=== PATIENT | male | born 1985 | race Caucasian/White ===

== ENCOUNTER 2018-03-18 22:03 | Emergency (ER) | payer OTHER, SELFPAY ==
--- NOTE | 2018-03-18 23:14 | EDPHYS ---
Physician Documentation [facility] Name: Blas Melchor Age: 32 yrs Sex: Male : 1985 Arrival Date: 03/18/2018 Time: 22:05 Bed 7 Private MD: ED Physician Avery Rodriguez HPI: 03/18 23:00 This 32 yrs old Male presents to ER via EMS with complaints of Right Ring pm1 Finger Injury. 23:00 The patient or guardian reports pain. The complaints affect the PIP of right ring pm1 finger. Context: The problem was sustained at work, resulted from subduing person under arrest. Onset: The symptoms/episode began/occurred just prior to arrival. Modifying factors: The symptoms are alleviated by holding still, the symptoms are aggravated by movement. Associated signs and symptoms: Pertinent negatives: cyanosis distally, decreased sensation distally, numbness distally, tingling distally. The patient has not experienced similar symptoms in the past. The patient has not recently seen a physician. Historical: - Allergies: 22:11 PENICILLINS; aa1 - PMHx: 22:11 Gastric Reflux; aa1 - PSHx: 22:11 Cholecystectomy; Knee surgery; aa1 - Immunization history:: Flu vaccine is not up to date. - Social history:: Smoking status: Patient/guardian denies using tobacco. - Ebola Screening: : No symptoms or risks identified at this time. ROS: 23:00 Constitutional: Negative for fever, chills, and weight loss, Neck: Negative for injury, pm1 pain, and swelling, Cardiovascular: Negative for chest pain, palpitations, and edema, Respiratory: Negative for shortness of breath, cough, wheezing, and pleuritic chest pain, Abdomen/GI: Negative for abdominal pain, nausea, vomiting, diarrhea, and constipation, Back: Negative for injury and pain. 23:00 Neuro: Negative for headache, weakness, numbness, tingling, and seizure. 23:00 MS/extremity: Positive for pain, swelling, of the right hand and PIP of right ring finger. 23:00 Skin: Positive for abrasion(s), of the heel of right hand. Exam: 23:00 Constitutional: This is a well developed, well nourished patient who is awake, alert, pm1 and in no acute distress. Head/Face: Normocephalic, atraumatic. Eyes: Pupils equal round and reactive to light, extra-ocular motions intact. Lids and lashes normal. Conjunctiva and sclera are non-icteric and not injected. Cornea within normal limits. Periorbital areas with no swelling, redness, or edema. ENT: Nares patent. No nasal discharge, no septal abnormalities noted. Tympanic membranes are normal and external auditory canals are clear. Oropharynx with no redness, swelling, or masses, exudates, or evidence of obstruction, uvula midline. Mucous membranes moist. Neck: Trachea midline, no thyromegaly or masses palpated, and no cervical lymphadenopathy. Supple, full range of motion without nuchal rigidity, or vertebral point tenderness. No Meningismus. Chest/axilla: Normal chest wall appearance and motion. Nontender with no deformity. No lesions are appreciated. Cardiovascular: Regular rate and rhythm with a normal S1 and S2. No gallops, murmurs, or rubs. No pulse deficits. Respiratory: Lungs have equal breath sounds bilaterally, clear to auscultation and percussion. No rales, rhonchi or wheezes noted. No increased work of breathing, no retractions or nasal flaring. Abdomen/GI: Soft, non-tender, with normal bowel sounds. No distension or tympany. No guarding or rebound. No evidence of tenderness throughout. Back: No spinal tenderness. No costovertebral tenderness. Full range of motion. 23:00 Musculoskeletal/extremity: Extremities: grossly normal except: noted in the PIP of right ring finger: swelling, tenderness, Patient is able to extend right ring finger fully and flex right ring finger PIP greater than 90 degrees. No dislocation present. 23:00 Skin: Appearance: normal except for affected area, injury, abrasion(s), very small abrasion noted, 1 cm(s), of the heel of right hand. 23:00 Neuro: Orientation: is normal, Motor: is normal, moves all fours. Vital Signs: 22:11 BP 146 / 83; Pulse 96; Resp 18; Temp 98.2; Pulse Ox 98% on R/A; Weight 136.08 kg; aa1 Height 6 ft. 4 in. (193.04 cm); Pain 3/10; 22:58 BP 137 / 96; Pulse 80; Resp 18; Pulse Ox 97% on R/A; ca1 23:36 BP 129 / 91; Pulse 74; Resp 18; Temp 98.7(O); Pulse Ox 98% on R/A; Pain 1/10; fc 22:11 Body Mass Index 36.52 (136.08 kg, 193.04 cm) aa1 MDM: 22:08 Patient medically screened. pm1 23:12 Data reviewed: vital signs. Data interpreted: Pulse oximetry: on room air is 97 %. pm1 Interpretation: normal. Counseling: I had a detailed discussion with the patient and/or guardian regarding: the historical points, exam findings, and any diagnostic results supporting the discharge/admit diagnosis, radiology results, the need for outpatient follow up, a hand specialist, to return to the emergency department if symptoms worsen or persist or if there are any questions or concerns that arise at home. 03/18 22:08 Order name: Hand Right 3 View XRAY pm1 03/18 22:59 Order name: Splint - Finger; Complete Time: 23:10 pm1 Administered Medications: No medications were administered Disposition: 03/19 05:31 Co-signature as Attending Physician, Avery Rodriguez MD I agree with the assessment and tw4 plan of care. Disposition: 03/18/18 23:13 Discharged to Home. Impression: Other sprain of right ring finger. - Condition is Stable. - Discharge Instructions: Cast or Splint Care, Adult, Finger Sprain, Adult. - Medication Reconciliation Form, Thank You Letter form. - Follow up: Emergency Department; When: As needed; Reason: Worsening of condition. Follow up: Alex Burgess MD; When: 2 - 3 days; Reason: Recheck today's complaints, Continuance of care, Re-evaluation by your physician. - Problem is new. - Symptoms have improved. Signatures: Dispatcher [employer] EDMS Alla No RN RN aa1 Martha Brewer RN RN Jonathan Sweet, RANCH HAND RANCH HAND pm1 Avery Rodriguez MD MD tw4 Corrections: (The following items were deleted from the chart) 03/18 23:38 23:13 03/18/2018 23:13 Discharged to Home. Impression: Other sprain of right ring fc finger. Condition is Stable. Forms are Medication Reconciliation Form, Thank You Letter, Antibiotic Education, Prescription Opioid Use. Follow up: Emergency Department; When: As needed; Reason: Worsening of condition. Follow up: Alex Burgess; When: 2 - 3 days; Reason: Recheck today's complaints, Continuance of care, Re-evaluation by your physician. Problem is new. Symptoms have improved. pm1
--- NOTE | 2018-03-18 23:14 | ER ---
Nurse's Notes [facility] Name: Blas Melchor Age: 32 yrs Sex: Male : 1985 Arrival Date: 03/18/2018 Time: 22:05 Bed 7 Private MD: Diagnosis: Other sprain of right ring finger Presentation: 03/18 22:05 Presenting complaint: Patient states: he was in pursuit of arresting an individual and aa1 somehow injured his R ring finger. States, "He was in the back of my car in cuffs before I even realized it was hurt.". Transition of care: patient was not received from another setting of care. Onset of symptoms was March 18, 2018. Risk Assessment: Do you want to hurt yourself or someone else? Patient reports no desire to harm self or others. Initial Sepsis Screen: Does the patient meet any 2 criteria? No. Patient's initial sepsis screen is negative. Does the patient have a suspected source of infection? No. Patient's initial sepsis screen is negative. Care prior to arrival: Splint applied. 22:05 Method Of Arrival: EMS: [facility] aa1 22:05 Acuity: ROBERTO 4 aa1 Triage Assessment: 22:11 General: Appears in no apparent distress. comfortable, Behavior is calm, cooperative, aa1 appropriate for age. Historical: - Allergies: 22:11 PENICILLINS; aa1 - PMHx: 22:11 Gastric Reflux; aa1 - PSHx: 22:11 Cholecystectomy; Knee surgery; aa1 - Immunization history:: Flu vaccine is not up to date. - Social history:: Smoking status: Patient/guardian denies using tobacco. - Ebola Screening: : No symptoms or risks identified at this time. Screenin:07 Abuse screen: Denies threats or abuse. Nutritional screening: No deficits noted. ca1 Tuberculosis screening: No symptoms or risk factors identified. Fall Risk None identified. Assessment: 22:07 General: Appears in no apparent distress. Behavior is calm, cooperative, appropriate ca1 for age. Pain: Complains of pain in dorsal aspect of proximal phalanx of right ring finger Aggravated by movement and pressure on the affected part. Neuro: Level of Consciousness is awake, alert, obeys commands, Oriented to person, place, time, situation. Cardiovascular: Heart tones S1 S2 present Capillary refill < 3 seconds Patient's skin is warm and dry. Respiratory: Airway is patent Trachea midline Respiratory effort is even, unlabored, Respiratory pattern is regular, symmetrical, Breath sounds are clear bilaterally. GI: Abdomen is round non-distended, Bowel sounds present X 4 quads. Abd is soft and non tender X 4 quads. : No signs and/or symptoms were reported regarding the genitourinary system. EENT: No signs and/or symptoms were reported regarding the EENT system. Derm: Skin is intact, is healthy with good turgor, Skin is pink, warm \\T\\ dry. Wound noted heel of right hand. Musculoskeletal: Circulation, motion, and sensation intact. Capillary refill < 3 seconds, Range of motion: limited in MCP of right ring finger. 22:57 Reassessment: Patient appears in no apparent distress at this time. Patient and/or ca1 family updated on plan of care and expected duration. Pain level reassessed. Patient is alert, oriented x 3, equal unlabored respirations, skin warm/dry/pink. Awaiting X-ray result.. Vital Signs: 22:11 BP 146 / 83; Pulse 96; Resp 18; Temp 98.2; Pulse Ox 98% on R/A; Weight 136.08 kg; aa1 Height 6 ft. 4 in. (193.04 cm); Pain 3/10; 22:58 BP 137 / 96; Pulse 80; Resp 18; Pulse Ox 97% on R/A; ca1 23:36 BP 129 / 91; Pulse 74; Resp 18; Temp 98.7(O); Pulse Ox 98% on R/A; Pain 1/10; fc 22:11 Body Mass Index 36.52 (136.08 kg, 193.04 cm) aa1 ED Course: 22:05 Patient arrived in ED. aa1 22:06 Sobia Pedraza, KELLY is Primary Nurse. ca1 22:07 Pulse ox on. NIBP on. ca1 22:08 Jonathan Sweet NP is PHCP. pm1 22:08 Avery Rodriguez MD is Attending Physician. pm1 22:08 Triage completed. aa1 22:11 Arm band placed on left wrist. aa1 22:12 Patient has correct armband on for positive identification. Bed in low position. Call ca1 light in reach. Side rails up X 1. 22:19 Hand Right 3 View XRAY In Process Unspecified. EDMS 23:11 Aluminum finger splint applied to dorsal aspect of middle phalanx of right ring finger, mt dorsal aspect of proximal phalanx of right ring finger and right ring fingernail. 23:12 Angel wrap to DIP of right ring finger, PIP of right ring finger and MCP of right ring mt finger. 23:13 Alex Burgess MD is Referral Physician. pm1 23:38 No provider procedures requiring assistance completed. Patient did not have IV access fc during this emergency room visit. Administered Medications: No medications were administered Outcome: 23:13 Discharge ordered by MD. pm1 23:37 Discharged to home ambulatory. fc 23:37 Condition: good 23:37 Discharge instructions given to patient, family, Instructed on discharge instructions, follow up and referral plans. Over the counter Motrin/Tylenol Demonstrated understanding of instructions, follow-up care, splint care, Over the counter medications Prescriptions given X none 23:38 Patient left the ED. fc Signatures: Dispatcher [employer] EDMS Alla No RN RN aa1 Martha Brewer RN RN Jonathan Sweet, [employer] WORK[employer] pm1 Carmel Green mt, Cheryl, RN RN ca1 Corrections: (The following items were deleted from the chart) 22:16 22:07 Patient has correct armband on for positive identification. Bed in low position. ca1 Call light in reach. Side rails up X 1. ca1 22:33 22:07 Injury Description: ca1 ca1 22:59 22:57 Reassessment: Patient appears in no apparent distress at this time. Patient ca1 and/or family updated on plan of care and expected duration. Pain level reassessed. Patient is alert, oriented x 3, equal unlabored respirations, skin warm/dry/pink. . ca1 23:00 22:57 Reassessment: Patient appears in no apparent distress at this time. Patient ca1 and/or family updated on plan of care and expected duration. Pain level reassessed. Patient is alert, oriented x 3, equal unlabored respirations, skin warm/dry/pink. Awaiting result.. ca1
--- NOTE | 2018-03-19 08:19 | RAD REPORT ---
EXAM DESCRIPTION: RAD - Hand Right 3 View - 03/18/2018 10:20 pm CLINICAL HISTORY: ring finger pain at PIP COMPARISON: No comparisons FINDINGS: No acute fracture or dislocation of the right hand is seen. Soft tissue swelling is seen a ffecting the fourth finger.
== END 2018-03-18 23:38 | disposition home or self-care (01) ==
LOC: ER 22:03
DX: S63.694A Other sprain of right ring finger, initial encounter (principal); Y35.891A Legal intervention involving other specified means, law enforcement official injured, initial encounter; Y99.0 Civilian activity done for income or pay
CPT/HCPCS: 99284

== ENCOUNTER 2019-07-14 19:03 | Emergency (ER) | payer OTHER, SELFPAY ==
[2019-07-14 20:13] LABS: Absolute Lymphocytes (CBC) 1.9 K/uL (0.7-4.9); Basophils % 0.9 % (0-1.3); Hematocrit 50.6 % (39.6-49.0); Lymphocytes % 27.7 % (15.3-44.8); MPV 12.2 fL (7.6-11.3); RBC Red Blood Cell Count 5.37 M/uL (4.33-5.43)
[2019-07-14 20:14] LABS: Blood Morphology Comment NOT SEEN (NOT SEEN); Platelet Estimate ADEQ; Urine White Blood Cell Casts OK
[2019-07-14 20:23] LABS: ALT/SGPT 29 U/L (12-78); AST/SGOT 13 U/L (15-37); Albumin 3.7 g/dL (3.4-5.0); Alkaline Phosphatase 48 U/L (45-117); BUN Blood Urea Nitrogen 16 mg/dL (7-18); Bicarbonate 29 mmol/L (21-32); Bilirubin Direct 0.2 mg/dL (0-0.2); Creatine Phosphokinase 66 U/L (39-308); Glucose Level 104 mg/dL (74-106); Lipase 77 U/L (73-393); Magnesium 2.3 mg/dL (1.8-2.4); Potassium 4.3 mmol/L (3.5-5.1); Protein, Total 7.1 g/dL (6.4-8.2); Sodium Level 141 mmol/L (136-145); Troponin (Emerg Dept Use Only) < 0.02 ng/mL (0.0-0.045)
--- NOTE | 2019-07-14 21:10 | RAD REPORT ---
EXAM DESCRIPTION: RAD - Chest Single View - 07/14/2019 8:27 pm CLINICAL HISTORY: SOB COMPARISON: None TECHNIQUE: AP portable chest image was obtained 07/14/2019 8:27 pm . FINDINGS: Lungs are clear. Heart and vasculature are normal. No measurable pleural effusion and no p neumothorax. No acute bony abnormality seen. No acute aortic findings suspected. IMPRESSION: No acute cardiopulmonary process.
[2019-07-14] MEDS ORDERED: NA CHLORIDE 0.9% 1,000 ML ONE (21:19)
--- NOTE | 2019-07-14 23:41 | EDPHYS ---
Physician Documentation [facility] Name: Blas Melchor Age: 33 yrs Sex: Male : 1985 Arrival Date: 07/14/2019 Time: 19:04 Bed 28 Private MD: ED Physician Avery Rodriguez HPI: 07/14 02:11 This 33 yrs old Male presents to ER via Ambulatory with complaints of tw4 Shortness Of Breath, Fatigue. 02:11 The patient has shortness of breath at rest. Onset: The symptoms/episode began/occurred tw4 today. Duration: The symptoms are continuous, and are unchanged since they started. The patient's shortness of breath has no apparent modifying factors. Severity of symptoms: At their worst the symptoms were mild in the emergency department the symptoms are unchanged. The patient has not experienced similar symptoms in the past. Historical: - Allergies: 07/13 19:41 PENICILLINS; ca1 - Home Meds: 19:41 Omeprazole Oral [Active]; ca1 - PMHx: 19:41 Gastric Reflux; ca1 - PSHx: 19:41 Cholecystectomy; Knee surgery; ca1 - Immunization history:: Adult Immunizations up to date, Flu vaccine is not up to date. - Social history:: Smoking status: Patient denies any tobacco usage or history of. ROS: 07/14 02:11 Cardiovascular: Negative for chest pain, palpitations, and edema, Abdomen/GI: Negative tw4 for abdominal pain, nausea, vomiting, diarrhea, and constipation, Back: Negative for injury and pain, MS/Extremity: Negative for injury and deformity, Skin: Negative for injury, rash, and discoloration. Constitutional: Negative for body aches, chills, fatigue, fever, malaise. Respiratory: Positive for shortness of breath, Negative for cough, dyspnea on exertion, hemoptysis, orthopnea, pleurisy. Exam: 02:11 Constitutional: This is a well developed, well nourished patient who is awake, alert, tw4 and in no acute distress. Head/Face: Normocephalic, atraumatic. Chest/axilla: Normal chest wall appearance and motion. Nontender with no deformity. No lesions are appreciated. Cardiovascular: Regular rate and rhythm with a normal S1 and S2. No gallops, murmurs, or rubs. Normal PMI, no JVD. No pulse deficits. Abdomen/GI: Soft, non-tender, with normal bowel sounds. No distension or tympany. No guarding or rebound. No evidence of tenderness throughout. Back: No spinal tenderness. No costovertebral tenderness. Full range of motion. MS/ Extremity: Pulses equal, no cyanosis. Neurovascular intact. Full, normal range of motion. Neuro: Awake and alert, GCS 15, oriented to person, place, time, and situation. Cranial nerves II-XII grossly intact. Motor strength 5/5 in all extremities. Sensory grossly intact. Cerebellar exam normal. Normal gait. Vital Signs: 07/13 19:37 BP 133 / 96; Pulse 66; Resp 17 S; Temp 97.5(TE); Pulse Ox 97% on R/A; Weight 156.49 kg ca1 (R); Height 6 ft. 4 in. (193.04 cm) (R); Pain 0/10; 20:40 BP 109 / 69; Pulse 56; Resp 14; Temp 97.5; Pulse Ox 99% on R/A; Pain 0/10; ls4 21:50 BP 114 / 79; Pulse 61; Resp 14; Pulse Ox 99% on R/A; Pain 0/10; ls4 23:00 BP 128 / 74; Pulse 62; Resp 14; Temp 98.0(O); Pulse Ox 99% on R/A; Pain 0/10; ls4 23:56 BP 116 / 66; Pulse 56; Resp 14; Pulse Ox 99% on R/A; ls4 19:37 Body Mass Index 41.99 (156.49 kg, 193.04 cm) ca1 MDM: 19:48 Patient medically screened. tw07/14 02:18 Differential diagnosis: Anemia Anxiety Reaction reactive airway disease, Sepsis. tw4 Antibiotic administration: Not indicated. Data reviewed: vital signs, nurses notes. Counseling: I had a detailed discussion with the patient and/or guardian regarding: the historical points, exam findings, and any diagnostic results supporting the discharge/admit diagnosis. 07/13 19:37 Order name: CPK; Complete Time: 20:31 tw4 07/13 20:32 Interpretation: Within normal limits: CPK 66. tw4 07/13 19:37 Order name: Troponin (emerg Dept Use Only); Complete Time: 20:31 tw4 07/13 20:32 Interpretation: Within normal limits: TROPED < 0.02. 07/13 19:37 Order name: BMP; Complete Time: 20:31 07/13 20:31 Interpretation: Normal except: CL 108; GFR 75. 07/13 19:37 Order name: CBC with Diff; Complete Time: 20:31 07/13 20:32 Interpretation: Normal except: HCT 50.6; MPV 12.2. 07/13 19:37 Order name: Hepatic Function; Complete Time: 20:31 07/13 20:32 Interpretation: Normal except: AST 13. 07/13 19:37 Order name: Lipase; Complete Time: 20:31 07/13 20:32 Interpretation: Within normal limits: LIP 77. 07/13 19:37 Order name: XRAY CXR (1 view); Complete Time: 23:37 07/13 19:37 Order name: Magnesium; Complete Time: 20:31 07/13 20:32 Interpretation: Within normal limits: MG 2.3. 07/13 20:14 Order name: CBC Smear Scan; Complete Time: 20:31 EDID 07/13 21:01 Order name: COVID-19 07/13 21:01 Order name: Flu; Complete Time: 23:37 07/13 21:01 Order name: Strep; Complete Time: 23:37 07/13 23:02 Order name: Throat Culture [facility] 07/13 19:37 Order name: Cardiac monitoring; Complete Time: 19:58 07/13 19:37 Order name: EKG - Nurse/Tech; Complete Time: 19:58 07/13 19:37 Order name: IV Saline Lock; Complete Time: 19:58 07/13 19:37 Order name: Labs collected and sent; Complete Time: 19:58 07/13 19:37 Order name: O2 Per Protocol; Complete Time: 19:58 07/13 19:37 Order name: O2 Sat Monitoring; Complete Time: 19:59 07/13 21:01 Order name: Labs collected and sent; Complete Time: 21:18 tw4 EC:35 Rate is 52 beats/min. Rhythm is regular. QRS [place] is Normal. CA interval is normal. QRS tw4 interval is normal. QT interval is normal. No Q waves. T waves are Flattened in leads V4, V5, V6. No ST changes noted. Clinical impression: NSR w/ Non-specific ST/T Changes. Interpreted by me. Reviewed by me. Administered Medications: 07/13 21:18 Drug: NS 0.9% 1000 ml Route: IV; Rate: 1 bolus; Site: left antecubital; ls4 22:20 Follow up: IV Status: Completed infusion; IV Intake: 1000ml ls4 Disposition: 07/14/19 23:40 Discharged to Home. Impression: Dyspnea, unspecified. - Condition is Stable. - Discharge Instructions: Weakness, Shortness of Breath, [id number], Fatigue. - Medication Reconciliation Form, Thank You Letter, Antibiotic Education, Prescription Opioid Use, Work release form form. - Follow up: Private Physician; When: Upon discharge from the Emergency Department; Reason: Recheck today's complaints, Continuance of care, Re-evaluation by your physician. - Problem is new. - Symptoms have improved. Signatures: Dispatcher [employer] EDAvery Amador MD MD tw4 Telma Paez, RN RN ls4 Sobia Pedraza RN RN ca1 Corrections: (The following items were deleted from the chart) 23:57 23:40 07/14/2019 23:40 Discharged to Home. Impression: Dyspnea, unspecified. Condition ls4 is Stable. Forms are Medication Reconciliation Form, Thank You Letter, Antibiotic Education, Prescription Opioid Use. Follow up: Private Physician; When: Upon discharge from the Emergency Department; Reason: Recheck today's complaints, Continuance of care, Re-evaluation by your physician. Problem is new. Symptoms have improved. tw4
--- NOTE | 2019-07-14 23:41 | ER ---
Nurse's Notes [facility] Name: Blas Melchor Age: 33 yrs Sex: Male : 1985 Arrival Date: 07/14/2019 Time: 19:04 Bed 28 Private MD: Diagnosis: Dyspnea, unspecified Presentation: 07/13 19:37 Chief complaint: Patient states: Work nights at [employer], slept straight 9 hours. At 4pm ca1 today, woke up felt short of breath, feels weak like muscle fatigue and some cold sweats. Denies chest pain. Denies fever and cough. Reports diarrhea yesterday and the day before. Coronavirus screen: Proceed with normal triage. Patient denies a cough. Patient reports shortness of breath or difficulty breathing. Patient denies measured and/or subjective temperature greater than 100.4F prior to today's visit. Patient denies travel on a cruise ship or to a country the [facility] currently lists as an affected area. Patient denies contact with known and/or suspected case of COVID-19. Ebola Screen: Patient negative for fever greater than or equal to 101.5 degrees Fahrenheit, and additional compatible Ebola Virus Disease symptoms Patient denies exposure to infectious person. Patient denies travel to an Ebola-affected area in the 21 days before illness onset. No symptoms or risks identified at this time. Initial Sepsis Screen: Does the patient meet any 2 criteria? No. Patient's initial sepsis screen is negative. Does the patient have a suspected source of infection? No. Patient's initial sepsis screen is negative. Risk Assessment: Do you want to hurt yourself or someone else? Patient reports no desire to harm self or others. Onset of symptoms was July 14, 2019 at 16:00. 19:37 Method Of Arrival: Ambulatory ca1 19:37 Acuity: ROBERTO 3 ca1 Triage Assessment: 20:42 Respiratory: Onset: The symptoms/episode began/occurred today, the patient has mild ls4 shortness of breath. Historical: - Allergies: 19:41 PENICILLINS; ca1 - Home Meds: 19:41 Omeprazole Oral [Active]; ca1 - PMHx: 19:41 Gastric Reflux; ca1 - PSHx: 19:41 Cholecystectomy; Knee surgery; ca1 - Immunization history:: Adult Immunizations up to date, Flu vaccine is not up to date. - Social history:: Smoking status: Patient denies any tobacco usage or history of. Screenin:41 Abuse screen: Denies threats or abuse. Denies injuries from another. Nutritional ls4 screening: No deficits noted. Tuberculosis screening: No symptoms or risk factors identified. Fall Risk None identified. Assessment: 19:30 General: Appears in no apparent distress. comfortable, Behavior is calm, cooperative. ls4 Pain: Denies pain. Neuro: No deficits noted. Cardiovascular: Denies chest pain, Capillary refill < 3 seconds Clubbing of nail beds is absent Patient's skin is warm and dry. Rhythm is sinus rhythm Chest pain is denied. Respiratory: Reports shortness of breath on exertion since this afternoon Airway is patent Respiratory effort is even, unlabored. GI: No deficits noted. No signs and/or symptoms were reported involving the gastrointestinal system. : No deficits noted. No signs and/or symptoms were reported regarding the genitourinary system. EENT: No deficits noted. No signs and/or symptoms were reported regarding the EENT system. Derm: Skin is intact, Skin is dry, Skin is pink, warm \T\ dry. Musculoskeletal: No deficits noted. No signs and/or symptoms reported regarding the musculoskeletal system. 20:39 Reassessment: Patient appears in no apparent distress at this time. Patient and/or ls4 family updated on plan of care and expected duration. Pain level reassessed. Patient is alert, oriented x 3, equal unlabored respirations, skin warm/dry/pink. Respiratory: Breath sounds are clear bilaterally. 21:51 Reassessment: Patient appears in no apparent distress at this time. Patient and/or ls4 family updated on plan of care and expected duration. Pain level reassessed. Patient is alert, oriented x 3, equal unlabored respirations, skin warm/dry/pink. Patient denies pain at this time. 23:00 Reassessment: Patient appears in no apparent distress at this time. Patient and/or ls4 family updated on plan of care and expected duration. Pain level reassessed. Patient is alert, oriented x 3, equal unlabored respirations, skin warm/dry/pink. 23:57 Reassessment: Patient appears in no apparent distress at this time. Patient and/or ls4 family updated on plan of care and expected duration. Pain level reassessed. Patient is alert, oriented x 3, equal unlabored respirations, skin warm/dry/pink. Patient states feeling better. 07/14 09:04 Reassessment: [id number] iw Vital Signs: 07/13 19:37 BP 133 / 96; Pulse 66; Resp 17 S; Temp 97.5(TE); Pulse Ox 97% on R/A; Weight 156.49 kg ca1 (R); Height 6 ft. 4 in. (193.04 cm) (R); Pain 0/10; 20:40 BP 109 / 69; Pulse 56; Resp 14; Temp 97.5; Pulse Ox 99% on R/A; Pain 0/10; ls4 21:50 BP 114 / 79; Pulse 61; Resp 14; Pulse Ox 99% on R/A; Pain 0/10; ls4 23:00 BP 128 / 74; Pulse 62; Resp 14; Temp 98.0(O); Pulse Ox 99% on R/A; Pain 0/10; ls4 23:56 BP 116 / 66; Pulse 56; Resp 14; Pulse Ox 99% on R/A; ls4 19:37 Body Mass Index 41.99 (156.49 kg, 193.04 cm) ca1 ED Course: 19:04 Patient arrived in ED. as 19:30 Bed in low position. Call light in reach. Side rails up X 1. library monitor on. Pulse ls4 ox on. NIBP on. 19:33 Telma Paez, KELLY is Primary Nurse. ls4 19:38 Avery Rodriguez MD is Attending Physician. tw4 19:40 Triage completed. ca1 19:41 Arm band placed on right wrist. ca1 19:59 No provider procedures requiring assistance completed. Initial lab(s) drawn, by va, ls4 sent to lab. Inserted saline lock: 18 gauge in left antecubital area, using aseptic technique. Blood collected. Patient maintains SpO2 saturation greater than 95% on room air. 20:28 XRAY CXR (1 view) In Process Unspecified. EDMS 20:50 Droplet isolation initiated. ls4 21:30 Flu and/or RSV swab sent to lab. covid swab. ls4 23:57 IV discontinued, intact, bleeding controlled, No redness/swelling at site. Pressure ls4 dressing applied. Administered Medications: 21:18 Drug: NS 0.9% 1000 ml Route: IV; Rate: 1 bolus; Site: left antecubital; ls4 22:20 Follow up: IV Status: Completed infusion; IV Intake: 1000ml ls4 Intake: 22:20 IV: 1000ml; Total: 1000ml. ls4 Outcome: 23:40 Discharge ordered by . tw4 23:56 Discharged to home ambulatory. ls4 23:56 Condition: good 23:56 Discharge instructions given to patient, Instructed on discharge instructions, follow up and referral plans. medication usage, safety practices, Demonstrated understanding of instructions, follow-up care, medications. 23:57 Patient left the ED. ls4 Addendum: 07/18/2019 09:55 Addendum: Other pt notified of negative COVID-19 swab results. Pt advised to remain in d m5 isolation until fever free for 72 hours without medication or 7 days from symptoms onset. Pt informed to get results he needs to contact medical records. Signatures: Dispatcher [employer] EDOR Brisa Gabriel RN RN dm5 Nubia Martinez Irene, RN RN iw Wadley, Terrence, MD MD tw4 Telma Paez RN RN ls4 Sobia Pedraza RN RN ca1
[2019-07-15 00:19] VITALS: O2SAT 99
[2019-07-15 00:21] VITALS: TEMP 98
[2019-07-15 00:23] VITALS: BP 116/66
--- NOTE | 2019-07-18 20:18 | EKG ---
Test Date: 2019-07-14 Test Time: 19:48:38 Production Line Technician: HILARIO MEASUREMENT RESULTS: Intervals: Rate: 62 WY: 156 QRSD: 92 QT: 384 QTc: 389 Jackson: P: 38 WY: 156 QRS: 87 T: -6 INTERPRETIVE STATEMENTS: Normal sinus rhythm Abnormal QRS-T angle, consider primary T wave abnormality Abnormal ECG No previous ECG available for comparison Electronically Signed On 07-18-19 20:11:39 CDT by Emmett Mendoza
== END 2019-07-14 23:57 | disposition home or self-care (01) ==
LOC: ER 19:03
DX: R06.00 Dyspnea, unspecified (principal); K21.9 Gastro-esophageal reflux disease without esophagitis; Z88.0 Allergy status to penicillin
CPT/HCPCS: 93005; 87070; 85025; 80048; 36415; 83735; 82550; 80076; 87081; 84484; 83690; 87804 ×2; 71045; 96360; 99285; U0001; J7030

== ENCOUNTER 2020-01-25 09:45 | Emergency (ER) | payer OTHER ==
[2020-01-25] MEDS ORDERED: NA CHLORIDE 0.9% 1,000 ML ONE (10:14)
[2020-01-25] MEDS ORDERED: MORPHINE 2 MG/ML SYR ONE (10:14)
[2020-01-25 10:24] LABS: Absolute Lymphocytes (CBC) 1.9 K/uL (0.7-4.9); Basophils % 0.8 % (0-1.3); Hematocrit 46.5 % (39.6-49.0); Lymphocytes % 30.3 % (15.3-44.8); MPV 11.9 fL (7.6-11.3)
[2020-01-25 10:30] LABS: Potassium 4.3 mmol/L (3.5-5.1)
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
[2020-01-25 11:43] VITALS: TEMP 98
[2020-01-25 11:46] VITALS: BP 145/99; O2SAT 100
[2020-01-25 12:21] LABS: Blood Morphology Comment NOT SEEN (NOT SEEN); Platelet Estimate ADEQ; Platelets, Giant PRESENT; White Blood Cell Scan OK (OK)
== END 2020-01-25 11:33 | disposition home or self-care (01) ==
LOC: ER 09:45
DX: M54.2 Cervicalgia (principal); R51.9 Headache, unspecified; V29.49XA Motorcycle driver injured in collision with other motor vehicles in traffic accident, initial encounter; Y92.89 Other specified places as the place of occurrence of the external cause; Z88.0 Allergy status to penicillin
CPT/HCPCS: 85025; 80048; 36415; 86900; 86850; 85610; 86901; 70450; 72125; 71260; 74177; Q9967; 82565; 96361; 96374; 99284; G0390; J2270; J7030

== ENCOUNTER 2020-04-02 13:55 | Inpatient (IN) | payer OTHER ==
--- NOTE | 2020-04-02 14:31 | RAD REPORT ---
EXAM DESCRIPTION: RAD - Chest Single View - 04/02/2020 2:23 pm CLINICAL HISTORY: SOB Chest pain. COMPARISON: Chest Single View dated 07/14/2019 FINDINGS: Portable technique limits examination quality. Moderate bilateral pulmonary opacities are seen likely representing viral pneumonia. The heart is nor mal in size.
[2020-04-02] MEDS ORDERED: ALBUTEROL 2.5 MG/3 ML NEB SOL ONE (14:42)
[2020-04-02] MEDS ORDERED: IPRATROPIUM BROM 0.5MG/2.5ML ONE (14:42)
[2020-04-02 14:56] LABS: Absolute Lymphocytes (CBC) 0.3 K/uL (0.7-4.9); Basophils % 0.3 % (0-1.3); Hematocrit 46.3 % (39.6-49.0); Lymphocytes % 6.8 % (15.3-44.8); MPV 11.4 fL (7.6-11.3); RBC Red Blood Cell Count 5.47 M/uL (4.33-5.43)
[2020-04-02 15:03] LABS: Protime INR 1.16
[2020-04-02 15:16] LABS: ALT/SGPT 49 U/L (12-78); AST/SGOT 37 U/L (15-37); Albumin 3.1 g/dL (3.4-5.0); Alkaline Phosphatase 61 U/L (45-117); BUN Blood Urea Nitrogen 20 mg/dL (7-18); Bicarbonate 23 mmol/L (21-32); Bilirubin Direct < 0.1 mg/dL (0-0.2); Bilirubin Total 0.4 mg/dL (0.2-1.0); Ferritin 159.3 ng/mL (26-388); Glucose Level 118 mg/dL (74-106); Lipase 213 U/L (73-393); Potassium 4.3 mmol/L (3.5-5.1); Sodium Level 138 mmol/L (136-145); Troponin (Emerg Dept Use Only) < 0.02 ng/mL (0.0-0.045)
--- NOTE | 2020-04-02 15:37 | ER ---
Nurse's Notes [facility] Name: Blas Melchor Age: 34 yrs Sex: Male : 1985 Arrival Date: 04/02/2020 Time: 13:55 Bed 28 Private MD: Diagnosis: Coronavirus infection, unspecified;Viral pneumonia, not elsewhere classified-coronavirus;Diarrhea, unspecified;Vomiting;Hypoxia Presentation: 04/02 13:57 Chief complaint: EMS states: SOB, dx with Covid on 03/27/20; symptoms for five days. vg1 This morning patient became nauseous and more tired than usual. On site patient O2 was 90% RA and respiratory rate between 28-35. Patient received 1 liter bolus of fluids, 125mg of Solu-Medrol, 25mg of Promethazine, and 8mg of Zofran. Coronavirus screen: Client presents with at least one sign or symptom that may indicate coronavirus-19. Client reports previous positive COVID test result. Date of collection: March 27, 2020. Ebola Screen: Patient negative for fever greater than or equal to 101.5 degrees Fahrenheit, and additional compatible Ebola Virus Disease symptoms. Initial Sepsis Screen: Does the patient meet any 2 criteria? RR > 20 per min. No. Patient's initial sepsis screen is negative. 13:57 Method Of Arrival: EMS: [facility] vg1 13:57 Risk Assessment: Do you want to hurt yourself or someone else? Patient reports no vg1 desire to harm self or others. Onset of symptoms was April 02, 2020. 13:57 Acuity: ROBETRO 3 vg1 Triage Assessment: 14:15 Respiratory: Onset: The symptoms/episode began/occurred this morning, the patient has vg1 moderate shortness of breath. Historical: - Allergies: 14:13 PENICILLINS; vg1 - Home Meds: 14:13 Amoxicillin Oral [Active]; vg1 - PMHx: 14:13 Gastric Reflux; vg1 - Immunization history:: Adult Immunizations up to date, Flu vaccine is not up to date. - Social history:: Smoking status: Patient denies any tobacco usage or history of. Screenin:15 Abuse screen: Denies threats or abuse. Nutritional screening: No deficits noted. vg1 Tuberculosis screening: No symptoms or risk factors identified. Fall Risk None identified. Assessment: 14:13 General: Appears in no apparent distress. Behavior is calm, cooperative. Pain: Denies vg1 pain. Neuro: Level of Consciousness is awake, alert, obeys commands, Oriented to person, place, time, situation. Cardiovascular: Apical and radial pulses even and regular. Respiratory: Airway is patent Respiratory effort is even, labored, Respiratory pattern is regular, symmetrical, tachypnea Breath sounds are diminished in left posterior lower lobe and right posterior lower lobe. Respiratory: Reports shortness of breath cough that is non-productive, labored breathing pain with respiration. GI: Reports diarrhea, nausea, vomiting. : No signs and/or symptoms were reported regarding the genitourinary system. EENT: No signs and/or symptoms were reported regarding the EENT system. Derm: Skin is intact, is healthy with good turgor. Musculoskeletal: Circulation, motion, and sensation intact. 14:30 Cardiovascular: Rhythm is regular. vg1 15:10 Reassessment: Patient appears in no apparent distress at this time. Patient is alert, vg1 oriented x 3, equal unlabored respirations, skin warm/dry/pink. States feels a little better than when EMS picked him up. Patient denies pain at this time. 16:32 Reassessment: Patient appears in no apparent distress at this time. Patient is alert, vg1 oriented x 3, equal unlabored respirations, skin warm/dry/pink. Patient stated that has not been dx with sleep apnea but has in the past woken up because he felt himself stop breathing. Notified provider. 17:44 Reassessment: Patient appears in no apparent distress at this time. Patient is alert, vg1 oriented x 3, equal unlabored respirations, skin warm/dry/pink. Patient denies pain at this time. Patient states feeling better. 18:34 Reassessment: Patient states wants to go home. Advised patient to stay and get vg1 treatment and patient persisted on leaving. Contacted Dr Womack and notified him of the situation. Dr Womack stated if patient is AOx3 patient can go home. Vital Signs: 13:57 BP 124 / 78; Pulse 83; Resp 26; Temp 98.3; Pulse Ox 99% on 15% Non-rebreather mask; vg1 15:00 BP 129 / 78; Pulse 97; Resp 22; Pulse Ox 98% on 15% Nebulizer Mask; vg1 16:00 BP 139 / 87; Pulse 106; Resp 22; Pulse Ox 92% on 4 lpm NC; vg1 17:00 BP 136 / 90; Pulse 95; Resp 22; Pulse Ox 94% on 4 lpm NC; vg1 18:00 BP 129 / 88; Pulse 94; Resp 14; Pulse Ox 95% on 4 lpm NC; vg1 ED Course: 13:55 Patient arrived in ED. ds1 13:57 Ely Garcia RN is Primary Nurse. vg1 13:57 Jonathan Sweet NP is PHCP. pm1 13:57 Esau Baird MD is Attending Physician. pm1 14:12 Triage completed. vg1 14:15 Patient has correct armband on for positive identification. Bed in low position. Call vg1 light in reach. Side rails up X 1. patient monitor on. Pulse ox on. NIBP on. 14:15 Arm band placed on. vg1 14:23 CXR XRAY In Process Unspecified. EDMS 14:40 Initial lab(s) drawn, by oh, sent to lab. First set of blood cultures drawn. vg1 14:55 Second set of blood cultures drawn. vg1 15:02 Maintain EMS IV. Dressing intact. Good blood return noted. Site clean \T\ dry. Gauge \T\ vg 1 site: 18 g RAC. 15:34 Sanjuanita Womack MD is Hospitalizing Provider. pm1 18:40 No provider procedures requiring assistance completed. vg1 18:42 Patient admitted, IV remains in place. vg1 Administered Medications: 14:52 Drug: Albuterol - atroVENT (3:1) (2.5 mg - 0.5 mg) 3 ml Route: Nebulizer; vg1 16:00 Follow up: Response: No adverse reaction vg1 Outcome: 15:36 Decision to Hospitalize by Provider. pm1 18:20 Admitted to ER Hold. Please see [facility] for further documentation. vg1 18:20 Condition: good 18:20 Instructed on the need for admit. 19:04 Patient left the ED. vg1 Signatures: Dispatcher [employer] EDMS Elena Prajapati ds1 Jonathan Sweet, [employer] pm1 Ely Garcia RN RN vg1 Corrections: (The following items were deleted from the chart) 14:12 13:57 BP 124 / 78; Pulse 83bpm; Resp 26bpm; Pulse Ox 99% 02 15% Non-rebreather mask; vg1vg1 17:43 16:34 Cardiovascular: Rhythm is vg1 vg1
--- NOTE | 2020-04-02 15:37 | EDPHYS ---
Physician Documentation [facility] Name: Blas Melchor Age: 34 yrs Sex: Male : 1985 Arrival Date: 04/02/2020 Time: 13:55 Bed 28 Private MD: ED Physician Esau Baird HPI: 04/02 14:10 This 34 yrs old Male presents to ER via EMS with complaints of Shortness Of pm1 Breath, Covid +. 14:10 The patient has shortness of breath at rest. Onset: The symptoms/episode began/occurred pm1 5 day(s) ago. Duration: The symptoms are continuous, and are steadily getting worse. The patient's shortness of breath is aggravated by light activity, is alleviated by nothing. Associated signs and symptoms: Pertinent positives: Cough, nausea, vomiting, diarrhea, fever, bodyaches. Severity of symptoms: in the emergency department the symptoms are worse. The patient has not experienced similar symptoms in the past. The patient has been recently seen by a physician: positive for covid. Patient with cough, fever, bodyaches onset Thursday last week. He was seen at urgent care ER on Thursday and was diagnosed with COVID. Prescribed amoxicillin and has been taking it since. Shortness of breath progressively worse the past 5 days. On EMS arrival, patient was 90% on Room air and tachypneic 32 bpm. Patient improved with NRB via EMS and given Solu-Medrol 125 IV, Phenergan 25 IV, and Zofran 4 mg in route. Historical: - Allergies: 14:13 PENICILLINS; vg1 - Home Meds: 14:13 Amoxicillin Oral [Active]; vg1 - PMHx: 14:13 Gastric Reflux; vg1 - Immunization history:: Adult Immunizations up to date, Flu vaccine is not up to date. - Social history:: Smoking status: Patient denies any tobacco usage or history of. ROS: 14:10 Eyes: Negative for injury, pain, redness, and discharge. pm1 14:10 Neck: Negative for injury, pain, and swelling, Cardiovascular: Negative for chest pain, palpitations, and edema. 14:10 Back: Negative for injury and pain, : Negative for injury, bleeding, discharge, and swelling, MS/Extremity: Negative for injury and deformity, Skin: Negative for injury, rash, and discoloration. 14:10 Constitutional: Positive for body aches, fever. 14:10 ENT: Positive for Lost sense of taste and smell . 14:10 Respiratory: Positive for cough, shortness of breath. 14:10 Abdomen/GI: Positive for nausea, vomiting, and diarrhea, Negative for abdominal pain. 14:10 Neuro: Positive for Generalized weakness. Exam: 14:10 Constitutional: This is a well developed, well nourished patient who is awake, alert, pm1 and in no acute distress. 14:10 Head/Face: Normocephalic, atraumatic. 14:10 Back: No spinal tenderness. No costovertebral tenderness. Full range of motion. Skin: Warm, dry with normal turgor. Normal color with no rashes, no lesions, and no evidence of cellulitis. MS/ Extremity: Pulses equal, no cyanosis. Neurovascular intact. Full, normal range of motion. 14:10 Constitutional: The patient appears in no acute distress, alert, awake, non-toxic, well developed, well hydrated, well groomed, well nourished, obese, obviously ill. 14:10 Cardiovascular: Rate: normal, Rhythm: regular, Pulses: no pulse deficits are appreciated, Edema: is not appreciated. 14:10 Respiratory: Respirations: tachypnea, that is mild, Breath sounds: decreased breath sounds, are located in both bases. 14:10 Abdomen/GI: Inspection: obese Palpation: abdomen is soft and non-tender, in all quadrants. 14:10 Neuro: Exam negative for acute changes, Orientation: is normal, Mentation: is normal, Motor: is normal, moves all fours, Sensation: is normal, no obvious gross deficits. Vital Signs: 13:57 BP 124 / 78; Pulse 83; Resp 26; Temp 98.3; Pulse Ox 99% on 15% Non-rebreather mask; vg1 15:00 BP 129 / 78; Pulse 97; Resp 22; Pulse Ox 98% on 15% Nebulizer Mask; vg1 16:00 BP 139 / 87; Pulse 106; Resp 22; Pulse Ox 92% on 4 lpm NC; vg1 17:00 BP 136 / 90; Pulse 95; Resp 22; Pulse Ox 94% on 4 lpm NC; vg1 18:00 BP 129 / 88; Pulse 94; Resp 14; Pulse Ox 95% on 4 lpm NC; vg1 MDM: 13:58 Patient medically screened. pm1 15:31 Data reviewed: vital signs. pm1 15:31 Counseling: I had a detailed discussion with the patient and/or guardian regarding: the pm1 historical points, exam findings, and any diagnostic results supporting the discharge/admit diagnosis, lab results, radiology results, the need for further work-up and treatment in the hospital. 15:45 ED course: Patient with moderate bilateral pneumonia due to covid. Patient with pm1 supplemental oxygen requirements. Patient currently on 4 L with 92-93% O2 saturation. Will admit the patient . 15:55 Physician consultation: Sanjuanita Womack MD was called at 15:55, was contacted at 15:55, pm1 regarding admission, patient's condition, and will see patient. 18:32 Refusal of service: The patient/guardian displays adequate decision making capability pm1 and despite a detailed discussion of alternatives, benefits, risks, and consequences refuses: Admission to the hospital for further work-up and treatment, Patient no longer wants to stay in the hospital after telling him that he is ill from covid 19 and currently needs oxygen supplementation for his bilateral pneumonia until he gets better. I explained to him that he was short of breath and 90% on room air at home when the EMS picked him up. Patient told me that "I don't want to talk anymore, I just want to go home.". 04/02 14:10 Order name: Blood Culture Adult (2) pm04/02 14:10 Order name: BMP; Complete Time: 15: pm04/02 14:10 Order name: C-Reactive Protein; Complete Time: 15: pm04/02 14:10 Order name: CBC with Diff; Complete Time: 18:19 pm04/02 14:10 Order name: D-Dimer; Complete Time: 15:22 pm04/02 14:10 Order name: Ferritin; Complete Time: 15: pm04/02 14:10 Order name: Flu; Complete Time: 17:18 pm04/02 14:10 Order name: Lactate; Complete Time: 15:22 pm04/02 14:10 Order name: LFT's; Complete Time: 15: pm04/02 14:10 Order name: Lipase; Complete Time: 15:22 pm1 04/02 14:10 Order name: Procalcitonin; Complete Time: 16:14 pm1 04/02 14:10 Order name: PT-INR; Complete Time: 15:22 pm1 04/02 14:10 Order name: Ptt, Activated; Complete Time: 15:22 pm1 04/02 14:10 Order name: Strep; Complete Time: 15:37 pm1 04/02 14:10 Order name: Troponin (emerg Dept Use Only); Complete Time: 15:22 pm1 04/02 14:10 Order name: Urine Microscopic Only [facility] 04/02 14:10 Order name: CXR XRAY; Complete Time: 14:51 pm1 04/02 14:10 Order name: EKG; Complete Time: 14:11 pm1 04/02 14:10 Order name: Cardiac monitoring; Complete Time: 14:59 pm1 04/02 14:10 Order name: Droplet/Contact Precautions; Complete Time: 14:59 pm1 04/02 14:10 Order name: EKG - Nurse/Tech; Complete Time: 14:59 pm1 04/02 14:10 Order name: IV Start; Complete Time: 14:59 pm1 04/02 14:10 Order name: Labs collected and sent; Complete Time: 14:59 pm1 04/02 14:10 Order name: O2 Per Protocol; Complete Time: 14:59 pm1 04/02 14:10 Order name: O2 Sat Monitoring; Complete Time: 14:59 pm1 04/02 15:45 Order name: Throat Culture [facility] 04/02 17:03 Order name: CONS Pharmacy Consult [facility] 04/02 17:03 Order name: Heart Healthy [facility] 04/02 17:58 Order name: CBC Smear Scan; Complete Time: 18:19 EDNM Administered Medications: 14:52 Drug: Albuterol - atroVENT (3:1) (2.5 mg - 0.5 mg) 3 ml Route: Nebulizer; vg1 16:00 Follow up: Response: No adverse reaction vg1 Disposition: 04/03 07:33 Co-signature as Attending Physician, Esau Baird MD I agree with the assessment and kdr plan of care. Disposition: 04/02/20 15:36 Hospitalization ordered by Sanjuanita Womack for Inpatient Admission. Preliminary diagnosis are Coronavirus infection, unspecified, Viral pneumonia, not elsewhere classified - coronavirus, Diarrhea, unspecified, Vomiting, Hypoxia. - Bed requested for Telemetry/MedSurg (Inpatient). - Status is Inpatient Admission. vg1 - Condition is Stable. - Problem is new. - Symptoms have improved. Signatures: Dispatcher [employer] EDMS Esau Baird MD MD [facility] Jonathan Sweet RISK CONTROL FIELD REPRESENTATIVE RISK CONTROL FIELD REPRESENTATIVE pm1 Ely Garcia RN RN vg1 Corrections: (The following items were deleted from the chart) 04/02 15:53 15:36 Hospitalization Ordered by Sanjuanita Womack MD for Observation. Preliminary pm1 diagnosis is Coronavirus infection, unspecified; Viral pneumonia, not elsewhere classified - coronavirus; Diarrhea, unspecified; Vomiting. Bed requested for Telemetry/MedSurg (observation). Status is Observation. Condition is Stable. Problem is new. Symptoms have improved. pm1 15:53 15:53 04/02/2020 15:36 Hospitalization Ordered by Sanjuanita Womack MD for Inpatient pm1 Admission. Preliminary diagnosis is Coronavirus infection, unspecified; Viral pneumonia, not elsewhere classified - coronavirus; Diarrhea, unspecified; Vomiting. Bed requested for Telemetry/MedSurg (Inpatient). Status is Inpatient Admission. Condition is Stable. Problem is new. Symptoms have improved. pm1 19:04 15:53 04/02/2020 15:36 Hospitalization Ordered by Sanjuanita Womack MD for Inpatient vg1 Admission. Preliminary diagnosis is Coronavirus infection, unspecified; Viral pneumonia, not elsewhere classified - coronavirus; Diarrhea, unspecified; Vomiting; Hypoxia. Bed requested for Telemetry/MedSurg (Inpatient). Status is Inpatient Admission. Condition is Stable. Problem is new. Symptoms have improved. pm1
[2020-04-02] MEDS ORDERED: ONDANSETRON 4 MG/2 ML VIAL IV PRN (16:57)
[2020-04-02] MEDS ORDERED: MORPHINE 2 MG/ML SYR IV PRN (16:57)
[2020-04-02] MEDS ORDERED: ACETAMINOPHEN 500 MG TAB PO PRN (16:57)
[2020-04-02] MEDS ORDERED: NA CHLORIDE 0.9% 1,000 ML IV SCH (17:00)
[2020-04-02] MEDS ORDERED: BENZONATATE 100 MG CAP PO PRN (17:02)
[2020-04-02] MEDS ORDERED: ALBUTEROL INHALER 60 PUFF/8 GM IH PRN (17:02)
[2020-04-02 17:58] LABS: Blood Morphology Comment NOT SEEN (NOT SEEN); Platelet Estimate DECR; White Blood Cell Scan OK (OK)
[2020-04-02 19:09] VITALS: TEMP 98.3
[2020-04-02 19:14] VITALS: BP 129/88; O2SAT 95
[2020-04-02] MEDS ORDERED: METHYLPREDNISOLONE 125 MG INJ IV SCH (21:00)
--- NOTE | 2020-04-04 06:13 | EKG ---
Test Date: 2020-04-02 Test Time: 14:53:54 Sales Closer: SAGE MEASUREMENT RESULTS: Intervals: Rate: 87 NC: 150 QRSD: 90 QT: 350 QTc: 421 [place]: P: 47 NC: 150 QRS: 119 T: -1 INTERPRETIVE STATEMENTS: Normal sinus rhythm Left posterior fascicular block T wave abnormality, consider inferior ischemia Abnormal ECG Compared to ECG 07/14/2019 19:48:38 Left posterior fascicular block now present Possible ischemia now present T-wave abnormality still present Electronically Signed On 04-04-20 06:09:22 TANK DRIVER by Emmett Mendoza
--- NOTE | 2020-04-11 01:37 | P.HP ---
Date of Service: 04/02/20 Patient left against medical advice before he was able to be seen by our service.
== END 2020-04-04 14:48 | disposition left against medical advice (07) | DRG 177 ==
LOC: ER 13:55 → ERHOLD 17:00
PROVIDERS: ADMIT Hospitalist; ATTEND Hospitalist
DX: U07.1 COVID-19 (principal); J12.82 Pneumonia due to coronavirus disease 2019; K21.9 Gastro-esophageal reflux disease without esophagitis; Z79.899 Other long term (current) drug therapy; Z88.0 Allergy status to penicillin; Z53.29 Procedure and treatment not carried out because of patient's decision for other reasons
CPT/HCPCS: 36415; 71045; 80048; 80076; 82728; 83605; 83690; 84145; 84484; 85025; 85379; 85610; 85730; 86140; 87040; 87070; 87081; 87804; 93005; 99285

== ENCOUNTER 2022-05-22 15:54 | Emergency (ER) | payer OTHER ==
[2022-05-22] MEDS ORDERED: HYDROCODONE/APAP 10/325 TAB ONE (16:29)
[2022-05-22] MEDS ORDERED: IBUPROFEN 200 MG TAB PO ONE (16:29)
--- NOTE | 2022-05-22 18:02 | RAD REPORT ---
EXAM DESCRIPTION: RAD - Knee Right 3 View - 05/22/2022 4:41 pm CLINICAL HISTORY: Pain COMPARISON: None. FINDINGS: Three views of the right knee. No fracture, dislocation or periosteal reaction.Mild suprapatellar effusion. No joint space narrowing . No soft tissue abnormality. IMPRESSION: No acute osseous abnormality. Mild suprapatellar joint effusion.
--- NOTE | 2022-05-22 18:04 | RAD REPORT ---
EXAM DESCRIPTION: RAD - Ankle Right 3 View - 05/22/2022 4:41 pm CLINICAL HISTORY: Pain, swelling COMPARISON: 04/07/2017. FINDINGS: Three views of the right ankle. No fracture, dislocation or periosteal reaction. No joint effusion seen. No joint space narrowing. La teral Pb are and anterior ankle soft tissue swelling. Stable moderate calcaneal spur. Enthesopat hy at the Achilles tendon attachment is also stable. IMPRESSION: No acute osseus abnormality. Soft tissue swelling and chronic findings as above.
--- NOTE | 2022-05-22 18:17 | EDPHYS ---
Physician Documentation [facility] Name: Blas Melchor Age: 36 yrs Sex: Male : 1985 Arrival Date: 05/22/2022 Time: 15:58 Bed 9 Private MD: ED Physician Neel Rodriguez HPI: 05/22 16:26 This 36 yrs old Male presents to ER via Ambulatory with complaints of Ankle Injury. kb 16:26 The patient presents with an injury, pain, swelling, tenderness. The complaints affect kb the right ankle. Onset: The symptoms/episode began/occurred this morning. Context: The problem was sustained outdoors, The patient can fully bear weight on the affected extremity. the patient is able to ambulate. Associated signs and symptoms: Pertinent positives: swelling, Pertinent negatives: calf tenderness, fever, nausea, numbness, rash, tingling, vomiting, warmth, weakness. Modifying factors: The symptoms are alleviated by nothing, the symptoms are aggravated by weight bearing, movement. Severity of symptoms: At their worst the symptoms were moderate, in the emergency department the symptoms are unchanged. 16:31 The patient has not experienced similar symptoms in the past. The patient has not kb recently seen a physician. Historical: - Allergies: 16:04 PENICILLINS; ph - Home Meds: 16:04 Omeprazole Oral [Active]; ph - PMHx: 16:04 Gastric Reflux; ph - PSHx: 16:04 knee; ph - Immunization history:: Adult Immunizations unknown. - Social history:: Smoking status: Patient denies any tobacco usage or history of. ROS: 16:23 Constitutional: Negative for fever, chills, and weight loss. kb 16:23 MS/extremity: Positive for injury or acute deformity, pain, swelling, tenderness, of the right ankle. 16:23 All other systems are negative. Exam: 16:24 Constitutional: This is a well developed, well nourished patient who is awake, alert, kb and in no acute distress. Head/Face: Normocephalic, atraumatic. ENT: Moist Mucous membranes Cardiovascular: Regular rate and rhythm with a normal S1 and S2. No gallops, murmurs, or rubs. No pulse deficits. Respiratory: Respirations even and unlabored. No increased work of breathing. Talking in full sentences Abdomen/GI: Soft, non-tender. No distention Skin: Warm, dry with normal turgor. Normal color. Neuro: Awake and alert, GCS 15, oriented to person, place, time, and situation. Moves all extremities. Normal gait. Psych: Awake, alert, with orientation to person, place and time. Behavior, mood, and affect are within normal limits. 16:24 Musculoskeletal/extremity: Extremities: grossly normal except: noted in the right ankle: pain, swelling, tenderness, ROM: intact in all extremities, Circulation is intact in all extremities. Sensation intact. Weight bearing: able to fully bear weight. Vital Signs: 15:59 BP 127 / 83; Pulse 76; Resp 18; Temp 97.8; Pulse Ox 97% on R/A; Weight 154.22 kg; ph Height 6 ft. 4 in. (193.04 cm); Pain 5/10; 15:59 Body Mass Index 41.39 (154.22 kg, 193.04 cm) ph MDM: 16:00 Patient medically screened. kb 16:24 Data reviewed: vital signs, nurses notes. kb 16:24 Differential diagnosis: fracture, sprain. ED course: Patient is a 36-year-old male who kb stepped on a Sherly bar and twisted his right ankle earlier today. Complains of right ankle pain and swelling as well as right knee pain. On exam patient has swelling, tenderness and mild bruising to right ankle. X-rays ordered.. 17:45 Independent interpretation of the following test(s) in the Emergency Department X-Ray: kb My interpretation is Ankle and knee x-ray interpreted by me, no fracture identified.. 18:16 Counseling: I had a detailed discussion with the patient and/or guardian regarding: the kb historical points, exam findings, and any diagnostic results supporting the discharge/admit diagnosis, radiology results, the need for outpatient follow up, a orthopedic surgeon, to return to the emergency department if symptoms worsen or persist or if there are any questions or concerns that arise at home. 05/22 16:03 Order name: Knee Right 3 View XRAY; Complete Time: 18:05 kb 05/22 16:03 Order name: Ankle Right 3 View XRAY; Complete Time: 18:05 kb 05/22 16:26 Order name: Ice pack; Complete Time: 17:03 kb 05/22 18:15 Order name: Short Leg Splint; Complete Time: 19:05 kb 05/22 18:15 Order name: Crutches; Complete Time: 19:05 kb Administered Medications: 16:25 Drug: [place] (HYDROcodone-acetaminophen) 10 mg-325 mg 1 tabs Route: PO; iw 17:30 Follow up: Response: Pain is decreased eh3 16:25 Drug: Ibuprofen 600 mg Route: PO; iw 17:30 Follow up: Response: Pain is decreased eh3 Disposition: 19:26 Co-signature as Attending Physician, Neel Rodriguez MD I reviewed the patient's care rn provided by the Advanced Practice Provider and agree with the diagnosis and treatment plan. Disposition Summary: 05/22/22 18:17 Discharge Ordered Location: Home kb Condition: Stable kb Diagnosis - Sprain of ankle kb Followup: kb - With: Emergency Department - When: As needed - Reason: Worsening of condition Followup: kb - With: Private Physician - When: 2 - 3 days - Reason: Recheck today's complaints, Continuance of care, Re-evaluation by your physician Discharge Instructions: - Discharge Summary Sheet kb - Ankle Sprain, [id number] kb Forms: - Medication Reconciliation Form kb - Thank You Letter kb - Antibiotic Education kb - Prescription Opioid Use kb Prescriptions: - Ibuprofen 800 mg Oral Tablet - take 1 tablet by ORAL route every 8 hours As needed take with food; 30 tablet; kb Refills: 0, Product Selection Permitted Signatures: Dispatcher [employer] Niurka Ash, HEALTH ECONOMIST-C HEALTH ECONOMIST-Dylonb Afua Cedillo RN RN Neel Rodriguez MD MD rn Hall, Patricia, RN RN [facility], Tanya MENDOZA 3 Corrections: (The following items were deleted from the chart) 16:04 16:04 Home Meds: Amoxicillin Oral; ph ph
--- NOTE | 2022-05-22 18:17 | ER ---
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 Coronavirus screen: Vaccine status: Patient reports being unvaccinated. Ebola Screen: No symptoms or risks identified at this time. Initial Sepsis Screen: Does the patient meet any 2 criteria? No. Patient's initial sepsis screen is negative. Does the patient have a suspected source of infection? No. Patient's initial sepsis screen is negative. Risk Assessment: Do you want to hurt yourself or someone else? Patient reports no desire to harm self or others. Onset of symptoms was May 22, 2022. 15:59 Method Of Arrival: Ambulatory ph 15:59 Acuity: ROBERTO 4 ph Triage Assessment: 16:04 General: Appears in no apparent distress. Behavior is calm, cooperative. Pain: ph Complains of pain in right ankle. Musculoskeletal: Circulation, motion, and sensation intact. Range of motion: intact in all extremities, Swelling present in right ankle. Historical: - Allergies: 16:04 PENICILLINS; ph - Home Meds: 16:04 Omeprazole Oral [Active]; ph - PMHx: 16:04 Gastric Reflux; ph - PSHx: 16:04 knee; ph - Immunization history:: Adult Immunizations unknown. - Social history:: Smoking status: Patient denies any tobacco usage or history of. Screenin:00 [facility] ED Fall Risk Assessment (Adult) Score/Fall Risk Level 0 - 2 = Low Risk. Abuse eh3 screen: Denies threats or abuse. Denies injuries from another. Nutritional screening: No deficits noted. Tuberculosis screening: No symptoms or risk factors identified. Assessment: 16:00 General: Appears in no apparent distress. uncomfortable, Behavior is calm, cooperative, eh3 appropriate for age. Pain: Complains of pain in right ankle and right knee. Neuro: Level of Consciousness is awake, alert, obeys commands, Oriented to person, place, time, situation. Cardiovascular: Capillary refill < 3 seconds Patient's skin is warm and dry. Respiratory: Airway is patent Respiratory effort is even, unlabored, Respiratory pattern is regular, symmetrical. GI: Abdomen is round non-distended. : No signs and/or symptoms were reported regarding the genitourinary system. EENT: No signs and/or symptoms were reported regarding the EENT system. Derm: Skin is pink, warm \T\ dry. Musculoskeletal: Circulation, motion, and sensation intact. Range of motion: limited in right knee and right ankle Swelling present in right ankle. 17:00 Reassessment: Patient appears in no apparent distress at this time. Patient and/or eh3 family updated on plan of care and expected duration. Pain level reassessed. Patient is alert, oriented x 3, equal unlabored respirations, skin warm/dry/pink. 18:00 Reassessment: Patient appears in no apparent distress at this time. Patient and/or eh3 family updated on plan of care and expected duration. Pain level reassessed. Patient is alert, oriented x 3, equal unlabored respirations, skin warm/dry/pink. Vital Signs: 15:59 BP 127 / 83; Pulse 76; Resp 18; Temp 97.8; Pulse Ox 97% on R/A; Weight 154.22 kg; ph Height 6 ft. 4 in. (193.04 cm); Pain 5/10; 15:59 Body Mass Index 41.39 (154.22 kg, 193.04 cm) ph ED Course: 15:58 Patient arrived in ED. ph 16:00 Niurka Marques F[facility]-C [facility]. kb 16:00 Neel Rodriguez MD is Attending Physician. kb 16:00 Patient has correct armband on for positive identification. Bed in low position. Call eh3 light in reach. Side rails up X 1. Pulse ox on. NIBP on. Door closed. Noise minimized. 16:03 Triage completed. ph 16:04 Arm band placed on Patient placed in an exam room. ph 16:05 Afua Cedillo, RN is Primary Nurse. iw 16:43 Knee Right 3 View XRAY In Process Unspecified. EDMS 16:43 Ankle Right 3 View XRAY In Process Unspecified. EDMS 18:00 Crutch training done. 3D boot applied to right foot. eh3 19:06 No provider procedures requiring assistance completed. Patient did not have IV access eh3 during this emergency room visit. Administered Medications: 16:25 Drug: [place] (HYDROcodone-acetaminophen) 10 mg-325 mg 1 tabs Route: PO; iw 17:30 Follow up: Response: Pain is decreased eh3 16:25 Drug: Ibuprofen 600 mg Route: PO; iw 17:30 Follow up: Response: Pain is decreased eh3 Medication: 19:06 VIS not applicable for this client. eh3 Outcome: 18:17 Discharge ordered by MD. servin 19:06 Discharged to home with crutches, with significant other. eh3 19:06 Condition: stable 19:06 Discharge instructions given to patient, Instructed on discharge instructions, follow up and referral plans. medication usage, crutch walking, Demonstrated understanding of instructions, follow-up care, medications, crutch walking, Prescriptions given X 1. 19:07 Patient left the ED. eh3 Signatures: Dispatcher [employer] EDAK Niurka Marques, LUANN-C SHANK RANDER-Afua Kennedy, RN RN Shanique Madison RN RN ph Hall, Erin, RN RN 3 Corrections: (The following items were deleted from the chart) 16:04 16:04 Home Meds: Amoxicillin Oral; ph ph
[2022-05-22 19:11] VITALS: BP 127/83; TEMP 97.8; O2SAT 97
== END 2022-05-22 19:07 | disposition home or self-care (01) ==
LOC: ER 15:54
DX: S93.401A Sprain of unspecified ligament of right ankle, initial encounter (principal)
CPT/HCPCS: 99284